=== PATIENT | male | born 1985 | race African-American/Black ===

== ENCOUNTER 2024-02-05 15:08 | Emergency (ER) | payer BC ==
[~2024-02-05] VITALS: Ht 188 cm; Wt 84.0 kg
[2024-02-05 15:23] VITALS: O2SAT 99
[2024-02-05] MEDS: MORPHINE SULFATE 4 MG/ML INJ (FOR IV/IM USE) IV NR (15:51)
[2024-02-05] MEDS: CEFAZOLIN 1000MG PREMIX 50 ML IV ONE (15:51)
[2024-02-05] MEDS: MORPHINE SULFATE 2 MG/ML INJ (NOT FOR IM USE) IV NR (18:10)
[2024-02-05] MEDS ORDERED: SULF1TAB48 MT (18:45)
[2024-02-05 19:48] VITALS: BP 142/98; PULSE 74; RESP 12; TEMP 98.6; O2SAT 99
== END 2024-02-05 19:49 | disposition home or self-care (01) ==
LOC: ER 15:08
DX: S71.111A Laceration without foreign body, right thigh, initial encounter (principal); J45.909 Unspecified asthma, uncomplicated; W34.09XA Accidental discharge from other specified firearms, initial encounter; Y93.89 Activity, other specified; Y92.89 Other specified places as the place of occurrence of the external cause; Y99.8 Other external cause status
CPT/HCPCS: 73551; 72170; 12002; 96365; 96375; 99291; J0690; J2270; Z7610 ×3